=== PATIENT | male | born 1945 | race Caucasian/White ===

== ENCOUNTER 2018-10-13 10:49 | Observation (INO) ==
--- NOTE | 2018-10-13 11:27 | ED ---
HPI General Chief complaint: Arrhythmia / Palpitations Stated complaint: Afib Time Seen by Provider: 10/13/18 11:08 Source: patient Mode of arrival: ambulatory Limitations: no limitations History of Present Illness HPI narrative: 72-year-old male with history of CAD, one cardiac stent, sent in by his lining layer Dr. Burgos because during a procedure today for anal fissures, while the patient was under generalized anesthesia on the monitor his heart rate was in the 40s and he was noted to be in A. fib. Patient denies history of A. fib. States he is completely asymptomatic. No chest pain or dyspnea. No fevers or recent illness. No abdominal pain. Related Data Home Medications Medication Instructions Recorded Confirmed aspirin [Aspirin Low Dose] 81 mg PO DAILY 10/13/18 10/13/18 fenofibrate 54 mg PO HS 10/13/18 10/13/18 losartan 50 mg PO DAILY 10/13/18 10/13/18 meloxicam 15 mg PO DAILY 10/13/18 10/13/18 omeprazole 20 mg PO DAILY 10/13/18 10/13/18 simvastatin 40 mg PO QPM 10/13/18 10/13/18 Allergies Allergy/AdvReac Type Severity Reaction Status Date / Time metoprolol Allergy Severe UNKNOWN Verified 10/13/18 10:56 codeine Allergy Mild NAUSEA Verified 10/13/18 10:56 Review of Systems ROS: all other systems reviewed are negative PMFSH Medical History Medical History Anal fissure (Acute) GERD (gastroesophageal reflux disease) (Acute) H/O [place] spotted fever (Acute) Hypercholesteremia (Acute) Hypertension (Acute) Infectious hepatitis (Acute) Myocardial infarction (Acute) Surgical History Surgical History H/O umbilical hernia repair (Acute) History of coronary artery stent placement (Acute) History of right hip replacement (Acute) Social History Social History Substance History: No History of Abuse Second Hand Smoke Exposure: No Smoking Status: Never smoker How Often Do You Have a Drink Containing Alcohol: Never Recent Travel in [place] within the Last 8 Weeks: No Recent Out of Country Travel within the Last 8 Weeks: No Immunization History Tetanus Immunization: >5 Years Exam Narrative Exam Narrative: GENERAL: Well-developed, well-nourished, awake, alert, no apparent distress. SKIN: Focused skin assessment warm/dry. HEAD: Atraumatic. Normocephalic. EYES: Pupils equal and round. No scleral icterus. No injection or drainage. Diffuse pallor. ENT: No nasal bleeding or discharge. Mucous membranes pink and moist. NECK: Trachea midline. No JVD. CARDIOVASCULAR: Irregular, rate 50. RESPIRATORY: No accessory muscle use. Clear to auscultation. Breath sounds equal bilaterally. GASTROINTESTINAL: Abdomen soft, non-tender, nondistended. MUSCULOSKELETAL: No obvious deformities. No clubbing. No cyanosis. No edema. NEUROLOGICAL: Awake and alert. No obvious cranial nerve deficits. Motor grossly within normal limits. Normal speech. PSYCHIATRIC: Appropriate mood and affect; insight and judgment normal. Course Initial Documented Vital Signs Temperature 97.6 F 10/13/18 10:50 Pulse Rate 61 10/13/18 10:50 Respiratory Rate 16 10/13/18 10:50 Blood Pressure 144/62 H 10/13/18 10:50 Pulse Oximetry 95 10/13/18 10:50 Last Documented Vital Signs Temperature 97.6 F 10/13/18 10:50 Pulse Rate 56 L 10/13/18 11:40 Respiratory Rate 18 10/13/18 11:40 Blood Pressure 119/60 10/13/18 11:40 Pulse Oximetry 96 10/13/18 11:40 Medical Decision Making MDM Narrative Medical decision making narrative: Vital signs reviewed. CBC is essentially unremarkable. CMP is remarkable for BUN 19, creatinine 1.9, GFR 35, random glucose 187, potassium 3.3. Patient is unaware of history of renal insufficiency, however he remembers being told in October that he was dehydrated. Have attempted to obtain labs from the patient's primary care physician as the patient states he had labs done last week. I discussed the case with on-call patients transporter Dr. Mg who recommends starting patient on subcu Lovenox 1 mg/kg twice daily, renally adjusted, and admitting the patient for echocardiogram with cardiology consultation. The patient was made aware of all findings and plan for admission. Case discussed with hospitalist Dr. Navas who will admit the patient to his service. Medical Screen Exam Complete: Yes Emergency Medical Condition: Yes Differential Diagnosis Differential Diagnosis: New-onset A. fib, metabolic abnormality, anemia, heart block Lab Data Result diagrams: 10/13/18 11:40 10/13/18 11:40 Lab Results 10/13/18 10/13/18 10/13/18 Range/Units 11:40 11:40 11:40 CBC w Diff Auto diff final WBC 7.3 (4.0-11.0) th/mm3 RBC 4.25 L (4.50-5.90) mil/mm3 Hgb 14.2 (13.0-17.0) gm/dL Hct 44.4 (39.0-51.0) % MCV 104.4 H (80.0-100.0) fL MCH 33.5 (27.0-34.0) pg MCHC 32.1 (32.0-36.0) % RDW 12.7 (11.6-17.2) % Plt Count 181 (150-450) th/mm3 MPV 9.2 (7.0-11.0) fL Neut % (Auto) 79.2 H (16.0-70.0) % Lymph % (Auto) 14.0 (9.0-44.0) % [place] % (Auto) 4.0 (0.0-8.0) % Eos % (Auto) 1.3 (0.0-4.0) % Baso % (Auto) 1.5 (0.0-2.0) % Neut # (Auto) 5.8 (1.8-7.7) th/mm3 Lymph # (Auto) 1.0 (1.0-4.8) th/mm3 [place] # (Auto) 0.3 (0.0-0.9) th/mm3 Eos # (Auto) 0.1 (0.0-0.4) th/mm3 Baso # (Auto) 0.1 (0.0-0.2) th/mm3 WBC Differential . Differential Comment . PT 10.8 (9.8-11.6) sec INR 1.1 Ratio APTT 24.2 (23.4-31.7) sec Sodium 143 (136-145) meq/L Potassium 3.3 L (3.5-5.1) meq/L Chloride 109 H (98-107) meq/L Carbon Dioxide 23.8 (21.0-32.0) meq/L Anion Gap 10 (5-15) meq/L BUN 19 H (7-18) mg/dL Creatinine 1.90 H (0.60-1.30) mg/dL Estimated GFR 35 L (>89) mL/min Random Glucose 187 H (74-106) mg/dL Calcium 8.3 L (8.5-10.1) mg/dL Total Bilirubin 0.4 (0.2-1.0) mg/dL AST 25 (15-37) U/L ALT 17 (12-78) U/L Alkaline Phosphatase 40 L (45-117) U/L Total Creatine Kinase 121 (39-308) U/L CK-MB (CK-2) 2.2 (0.5-3.6) ng/mL Troponin I 0.03 (0.02-0.05) ng/mL Total Protein 7.6 (6.4-8.2) g/dL Albumin 3.6 (3.4-5.0) g/dL ECG Data Attestation: I personally reviewed and interpreted this ECG as follows: (A. fib , rate 48, normal axis, nonspecific T wave abnormality, no ST segment abnormality.) Discharge Plan Discharge Disposition Patient Disposition: ED Admit(ED Internal Use Only) Discharge Condition Condition: Stable Discharge Details Diagnosis: New onset a-fib, Bradycardia, Renal insufficiency, Hyperglycemia Physicians Team ED Provider: Bandar Jaquez Primary Care Provider: Caleb Feliciano Rxs /Orders / Referrals /Forms Prescriptions: No Action losartan 50 mg Tablet 50 mg PO DAILY RF: 0 meloxicam 15 mg Tablet 15 mg PO DAILY RF: 0 aspirin [Aspirin Low Dose] 81 mg Tablet,Delayed Release (Dr/Ec) 81 mg PO DAILY RF: 0 simvastatin 40 mg Tablet 40 mg PO QPM RF: 0 omeprazole 20 mg Capsule,Delayed Release(Dr/Ec) 20 mg PO DAILY RF: 0 fenofibrate 54 mg Tablet 54 mg PO HS RF: 0 Status ED Status: With Doctor
--- NOTE | 2018-10-13 11:52 | ECG ---
Date Performed: 10/13/2018 Time Performed: 11:32:45 PTAGE: 72 years EKG: ATRIAL FIBRILLATION WITH SLOW VENTRICULAR RESPONSE POSSIBLE RIGHT VENTRICULAR CONDUCTION DE LAY NONSPECIFIC T-WAVE ABNORMALITY ABNORMAL ECG PREVIOUS TRACING : 07/15/2009 09.45 DOCTOR: James Saenz Interpretating Date/Time 10/13/2018 11:49:51
[2018-10-13 11:57] LABS: Baso # (Auto) 0.1 th/mm3 (0.0-0.2); Baso % (Auto) 1.5 % (0.0-2.0); Eos # (Auto) 0.1 th/mm3 (0.0-0.4); Eos % (Auto) 1.3 % (0.0-4.0); Hematocrit 44.4 % (39.0-51.0); Hemoglobin 14.2 gm/dL (13.0-17.0); Mean Corpuscular HGB Conc 32.1 % (32.0-36.0); Mean Corpuscular Hemoglobin 33.5 pg (27.0-34.0); Mean Corpuscular Volume 104.4 fL (80.0-100.0); Mean Platelet Volume 9.2 fL (7.0-11.0); Mono # (Auto) 0.3 th/mm3 (0.0-0.9); Neut # (Auto) 5.8 th/mm3 (1.8-7.7); Neut % (Auto) 79.2 % (16.0-70.0); Platelet Count 181 th/mm3 (150-450); Red Blood Count 4.25 mil/mm3 (4.50-5.90); Red Cell Distribution Width 12.7 % (11.6-17.2); White Blood Count 7.3 th/mm3 (4.0-11.0)
[2018-10-13 12:08] LABS: Chloride 109 meq/L (98-107); Potassium 3.3 meq/L (3.5-5.1); Sodium 143 meq/L (136-145)
[2018-10-13 12:14] LABS: Albumin 3.6 g/dL (3.4-5.0); Anion Gap 10 meq/L (5-15); Blood Urea Nitrogen 19 mg/dL (7-18); Calcium 8.3 mg/dL (8.5-10.1); Carbon Dioxide 23.8 meq/L (21.0-32.0); Glucose,Random 187 mg/dL (74-106)
[2018-10-13 12:16] LABS: Activated Partial Thrombo Time 24.2 sec (23.4-31.7); INR 1.1 Ratio; Prothrombin Time 10.8 sec (9.8-11.6)
[2018-10-13 12:17] LABS: Alanine Aminotransferase 17 U/L (12-78); Aspartate Aminotransferase 25 U/L (15-37); Glomerular Filtration Rate 35 mL/min (>89)
[2018-10-13 12:19] LABS: Total Protein 7.6 g/dL (6.4-8.2)
[2018-10-13 12:20] LABS: Alkaline Phosphatase 40 U/L (45-117); Creatine Kinase 121 U/L (39-308)
[2018-10-13 12:22] LABS: Troponin I 0.03 ng/mL (0.02-0.05)
[2018-10-13 12:32] LABS: Creatine Kinase MB 2.2 ng/mL (0.5-3.6)
[2018-10-13] MEDS ORDERED: Enoxaparin Inj 150 MG/ML Syringe SQ ONE (13:36)
[2018-10-13] MEDS ORDERED: Sod Chloride 0.9% Inj 1,000 ML IV.CONT SCH (14:00)
--- NOTE | 2018-10-13 15:08 | P.HP ---
History of Present Illness Primary Care Physician: Caleb Feliciano Chief Complaint: Patient sent here by Dr. Burgos History of Present Illness: 72-year-old male with known history of hypertension, hyperlipidemia, coronary disease, gastroesophageal reflux who was sent to the hospital because of bradycardia and atrial fibrillation. Patient was in normal state of health when he went to have anal fissure surgery today by Dr. Burgos, patient underwent general anesthesia and apparently was bradycardic with atrial fibrillation. Patient was sent here for further evaluation and management. Upon workup in emergency department patient was found to have atrial fib/flutter with slow ventricular response and it was recommended by ER physician the patient be observed for further evaluation management, cardiology was consulted who recommended echocardiogram, Lovenox, cardiology consultation. Patient indicates that last time he saw a gauger chief was over 10 years ago. When he first had his myocardial infarction with stenting back 21 years ago he did follow with Dr. Winters on a regular basis and then he started seeing Dr. Cool. However he never went back for continued care and management. Patient denies any recent cardiac workup. He states that his primary medical doctor has not performed any EKGs in the last 2 years. The patient indicates that he normally has low heart rate in the 40s and 50s. He is never been told that he has any abnormal heart rate. He is asymptomatic without any chest pain , shortness of breath, dyspnea, fatigue, chest pain, lightheadedness, dizziness. - Diagnosis (1) New onset a-fib (2) Acute renal failure superimposed on stage 2 chronic kidney disease (3) Hyperglycemia Review of Systems All other systems reviewed negative except as stated in HPI [facility] - History History Provided By: Patient - Medical History Medical History: Medical History (Last Updated 10/13/18 @ 11:13 by Codie Ramirez RN) Anal fissure GERD (gastroesophageal reflux disease) H/O [place] spotted fever Hypercholesteremia Hypertension Infectious hepatitis Myocardial infarction - Surgical History Surgical History: Surgical History (Last Updated 10/13/18 @ 11:13 by Codie Ramirez RN) H/O umbilical hernia repair History of coronary artery stent placement History of right hip replacement - Family History Family History: Family History (Last Updated 10/13/18 @ 15:02 by UZMA Ybarra) Other No pertinent family history - Tobacco History Second Hand Smoke Exposure: No Smoking Status: Never smoker - Alcohol History How Often Do You Have a Drink Containing Alcohol: Never - Substance Use History Substance History: No History of Abuse - Travel History Recent Travel in the [place] Within the Last 8 Weeks: No Recent Travel Out of the Country Within the Last 8 Weeks: No - Immunization History Tetanus Immunization: >5 Years Medications and Allergies Active Medications: Active Medications Sodium Chloride (Ns Inj) 1,000 mls @ 125 mls/hr IV.CONT .Q8H OFELIA Stop: 10/13/18 21:59 Last Admin: 10/13/18 14:14 Dose: 125 mls/hr Sodium Chloride (Ns Flush) 2 ml IV.FLUSH UNSCH PRN PRN Reason: FLUSH AFTER USING IV ACCESS Allergies Allergy/AdvReac Type Severity Reaction Status Date / Time metoprolol Allergy Severe UNKNOWN Verified 10/13/18 10:56 codeine Allergy Mild NAUSEA Verified 10/13/18 10:56 Home Medications Medication Instructions Recorded Confirmed Type aspirin [Aspirin Low Dose] 81 mg PO DAILY 10/13/18 10/13/18 History fenofibrate 54 mg PO HS 10/13/18 10/13/18 History losartan 50 mg PO DAILY 10/13/18 10/13/18 History meloxicam 15 mg PO DAILY 10/13/18 10/13/18 History omeprazole 20 mg PO DAILY 10/13/18 10/13/18 History simvastatin 40 mg PO QPM 10/13/18 10/13/18 History Exam Vital signs: Vital Signs 10/13/18 10:50 10/13/18 11:40 10/13/18 14:23 Temperature 97.6 F Pulse Rate 61 56 L 57 L Respiratory Rate 16 18 18 Blood Pressure 144/62 H 119/60 137/74 Pulse Oximetry 95 96 98 Intake & Output 10/12/18 10/13/18 10/13/18 18:59 06:59 18:59 Weight 85.5 kg Narrative: GENERAL: Well-developed, well-nourished, in no acute distress. alert and orientated HEENT: Head is normocephalic without any lesions or masses noted. Facial features are symmetric. Eyes: Pupils equal round reactive to light. Extraocular muscles are intact. Conjunctivae were clear. Oropharyngeal: Pharynx without any erythema edema. Tongue is midline without deviation. Buccal mucosa is moist without any masses or lesions NECK: Supple without any masses. Trachea midline no deviation. No JVD, no bruits are appreciated CARDIAC: Bradycardic with irregular rhythm. S1/S2 are heard. No murmurs gallops or rubs. LUNGS: Clear to auscultation bilaterally. No wheeze, rhonchi or rales. No use of accessory muscles on inspiration or expiration. ABDOMEN: Soft, nontender. Nondistended. Bowel sounds heard in all 4 quadrants. No organomegaly or masses. Negative rebound, negative guarding EXTREMITIES: No edema, pulses are equal bilaterally. No cyanosis or clubbing NEUROLOGY: Mood and affect appear appropriate. Cranial nerves II through XII grossly intact. Muscle strength 5/5 in upper and lower extremities bilaterally. Deep tendon reflexes are 2+ in upper and lower extremities bilaterally. Results - Labs CBC & Chem 7: 10/13/18 11:40 10/13/18 11:40 Labs: Laboratory Results - last 24 hr 10/13/18 10/13/18 10/13/18 11:40 11:40 11:40 CBC w Diff Auto diff final WBC 7.3 RBC 4.25 L Hgb 14.2 Hct 44.4 MCV 104.4 H MCH 33.5 MCHC 32.1 RDW 12.7 Plt Count 181 MPV 9.2 Neut % (Auto) 79.2 H Lymph % (Auto) 14.0 [place] % (Auto) 4.0 Eos % (Auto) 1.3 Baso % (Auto) 1.5 Neut # (Auto) 5.8 Lymph # (Auto) 1.0 [place] # (Auto) 0.3 Eos # (Auto) 0.1 Baso # (Auto) 0.1 WBC Differential . Differential Comment . PT 10.8 INR 1.1 APTT 24.2 Sodium 143 Potassium 3.3 L Chloride 109 H Carbon Dioxide 23.8 Anion Gap 10 BUN 19 H Creatinine 1.90 H Estimated GFR 35 L Random Glucose 187 H Calcium 8.3 L Total Bilirubin 0.4 AST 25 ALT 17 Alkaline Phosphatase 40 L Total Creatine Kinase 121 CK-MB (CK-2) 2.2 Troponin I 0.03 Total Protein 7.6 Albumin 3.6 Caprini VTE Risk Assessment Caprini VTE Risk Assessment: Moderate/High Risk (score >= 2) Caprini Risk Assessment Model: Point Value = 1 Point Value = 2 Point Value = 3 Point Value = 5 Age 41-60 Minor surgery BMI > 25 kg/m2 Swollen legs Varicose veins or History of unexplained or recurrent spontaneous Oral contraceptives or hormone replacement Sepsis (< 1 month) Serious lung disease, including pneumonia (< 1 month) Abnormal pulmonary function Acute myocardial infarction Congestive heart failure (< 1 month) History of inflammatory bowel disease Medical patient at bed rest Age 61-74 Arthroscopic surgery Major open surgery (> 45 min) Laparoscopic surgery (> 45 min) Malignancy Confined to bed (> 72 hours) Immobilizing plaster cast Central venous access Age >= 75 History of VTE Family history of VTE Factor V Leiden Prothrombin [id number] Lupus anticoagulant Anticardiolipin antibodies Elevated serum homocysteine Heparin-induced thrombocytopenia Other congenital or acquired thrombophilia Stroke (< 1 month) Elective arthroplasty Hip, pelvis, or leg fracture Acute spinal cord injury (< 1 month) Prophylaxis Regimen: Total Risk Factor Score Risk Level Prophylaxis Regimen 0-1 Low Early ambulation 2 Moderate Order ONE of the following: *Sequential Compression Device (SCD) *Heparin 5000 units SQ BID 3-4 Higher Order ONE of the following medications: *Heparin 5000 units SQ TID *Enoxaparin/Lovenox 40 mg SQ daily (WT < 150 kg, CrCl > 30 mL/min) *Enoxaparin/Lovenox 30 mg SQ daily (WT < 150 kg, CrCl > 10-29 mL/min) *Enoxaparin/Lovenox 30 mg SQ BID (WT < 150 kg, CrCl > 30 mL/min) AND/OR *Sequential Compression Device (SCD) 5 or more Highest Order ONE of the following medications: *Heparin 5000 units SQ TID (Preferred with Epidurals) *Enoxaparin/Lovenox 40 mg SQ daily (WT < 150 kg, CrCl > 30 mL/min) *Enoxaparin/Lovenox 30 mg SQ daily (WT < 150 kg, CrCl > 10-29 mL/min) *Enoxaparin/Lovenox 30 mg SQ BID (WT < 150 kg, CrCl > 30 mL/min) AND *Sequential Compression Device (SCD) Assessment and Plan - Assessment (1) New onset a-fib Code(s): I48.91 - Unspecified atrial fibrillation Status: Acute (2) Acute renal failure superimposed on stage 2 chronic kidney disease Code(s): N17.9 - Acute kidney failure, unspecified; N18.2 - Chronic kidney disease, stage 2 (mild) Status: Acute (3) Hyperglycemia Code(s): R73.9 - Hyperglycemia, unspecified Status: Acute - Plan New onset atrial fibrillation/flutter with slow ventricular response -Rate controlled at this time -Obtain echocardiogram -Cardiology consulted for further recommendations -Chads score 2, will need full anticoagulation, preferably with Xarelto or Eliquis -Patient does have increased cardiovascular risk factors. Possible need for myocardial perfusion study, will defer to cardiology Hyperglycemia -Obtain hemoglobin A1c -Accu-Cheks with sliding scale insulin Acute renal failure superimposed on chronic kidney disease stage II -Continue IV fluids -Monitor renal function -Avoid nephrotoxins Hypertension, hyperlipidemia, coronary artery disease -Continue home medications DVT prevention -Patient on Lovenox
[2018-10-13] MEDS ORDERED: Dextrose 50% in Water 50 ML Vial IV.PUSH PRN (15:12)
[2018-10-13] MEDS: Insulin NovoLOG Aspart Correctional Sugar Inj SQ SCH ×2 (17:28→22:51)
[2018-10-13] MEDS ORDERED: Fenofibrate 48 MG Tablet PO SCH (21:00)
--- NOTE | 2018-10-13 21:16 | MB ---
cc: Chaz Mg MD DATE: 10/13/2018 HISTORY OF PRESENT ILLNESS: Alf is a very pleasant 72-year-old gentleman who was at [place] having an outpatient procedure. He was found to be in atrial fibrillation with a slow ventricular response. The patient is completely asymptomatic. Denies chest pain, fever, chills, cough, GI or bleeding, PND, orthopnea, syncope, or dizziness. PAST MEDICAL HISTORY: As per history of present illness. He has a history of anal fissure, GERD, [place] spotted fever, hyperlipidemia, hypertension, infectious hepatitis, myocardial infarction, umbilical hernia repair, history of stent placement, history of right hip replacement. ALLERGIES: METOPROLOL AND CODEINE. SOCIAL HISTORY: Never smoked. Denies alcohol use. MEDICATIONS: Medications in the hospital: 1. Tricor 48 mg daily. 2. Lovenox 40 mg subcutaneous every 12 hours. 3. Pantoprazole 20 mg daily. 4. Pravachol 80 mg every p.m. 5. Protonix 20 mg daily. 6. Potassium supplementation. PHYSICAL EXAMINATION: VITAL SIGNS: Pulse ranging between 56 and 57, blood pressure 137/74, sats 98% on room air, temperature 97.6, respiratory rate 16. GENERAL: He is alert and oriented x3, in no acute distress. NECK: Supple. No JVD. No bruit. CARDIOVASCULAR: S1, S2. No murmurs, rubs, or gallops. LUNGS: Clear to auscultation bilaterally. ABDOMEN: Soft, nontender, nondistended with positive bowel sounds. EXTREMITIES: No lower extremity edema. LABORATORY DATA: EKG shows atrial fibrillation at a rate of 48 beats per minute. Corrected QT interval 475 milliseconds. White count 7.3, hemoglobin 14.2, hematocrit 44.4, MCV is 104.4, platelet count 181. INR is 1.1. Sodium 143, potassium 3.3, chloride 109, bicarbonate 23.8, BUN 19, creatinine 1.90. Troponin 0.03. DIAGNOSES: 1. Atrial fibrillation. 2. Bradycardia. 3. Coronary artery disease. 4. Chronic renal insufficiency. 5. Hypokalemia. 6. Macrocytosis. 7. History of myocardial infarction. DISCUSSION: The patient's CHADS-VASc score is at least 2 given his history of coronary artery disease, male gender, age of 72. Therefore, I have advised him to take Coumadin or a novel oral anticoagulant agent to lower his risk of life threatening and/or debilitating stroke, which I have explained to him and his family members. The patient agrees. He wants to wait and see what his insurance covers and has not decided between Coumadin or novel oral anticoagulant agent. He is adequately anticoagulated with Lovenox and he is dosed with Lovenox per his renal function. I think it is reasonable to observe him overnight on telemetry just to rule out any significant pauses or worsening bradyarrhythmia. Otherwise, he is completely asymptomatic and otherwise there is no indication for treatment of his bradycardia. MD LISA Brewster/ts , 08:21 PM , 08:29 PM
[2018-10-14] MEDS: Enoxaparin Inj 40 MG/0.4 ML Syringe SQ SCH ×2 (05:33→13:11)
[2018-10-14 07:45] LABS: Hematocrit 41.9 % (39.0-51.0); Hemoglobin 13.6 gm/dL (13.0-17.0); Mean Corpuscular HGB Conc 32.4 % (32.0-36.0); Mean Corpuscular Hemoglobin 33.8 pg (27.0-34.0); Mean Corpuscular Volume 104.2 fL (80.0-100.0); Mean Platelet Volume 9.4 fL (7.0-11.0); Platelet Count 165 th/mm3 (150-450); Red Blood Count 4.02 mil/mm3 (4.50-5.90); Red Cell Distribution Width 12.2 % (11.6-17.2); White Blood Count 4.9 th/mm3 (4.0-11.0)
[2018-10-14 08:05] LABS: Potassium 3.6 meq/L (3.5-5.1)
[2018-10-14 08:07] LABS: Calcium 7.9 mg/dL (8.5-10.1); Carbon Dioxide 25.3 meq/L (21.0-32.0)
[2018-10-14] MEDS: Insulin NovoLOG Aspart Correctional Sugar Inj SQ SCH ×2 (08:30→12:15)
[2018-10-14] MEDS ORDERED: Pantoprazole Sodium 20 MG DR Tablet PO SCH (09:00)
--- NOTE | 2018-10-14 09:37 | P.PNIM ---
Subjective Interval history: 72-year-old male who is seen examined today for follow-up on atrial fibrillation with slow ventricular response. Patient is asymptomatic at this time. Denies any chest pain, short of breath, dyspnea. Vital signs appear to be stable. Heart rate ranging from 46-61. Patient remains afebrile Physical Exam Vital signs: Last Vital Signs Temp 97.4 F L 10/14/18 07:15 Pulse 48 L 10/14/18 07:15 Resp 22 10/14/18 07:15 BP 167/77 H 10/14/18 07:15 Pulse Ox 98 10/14/18 07:15 Intake & Output 10/12/18 10/13/18 10/14/18 10/15/18 06:59 06:59 06:59 06:59 Intake Total 1680 / 1680 1040 / 1040 Output Total 360 / 360 Balance 1680 / 1680 680 / 680 Weight 85.4 kg Narrative: GENERAL: Well-developed, well-nourished, in no acute distress. alert and orientated HEENT: Head is normocephalic without any lesions or masses noted. Facial features are symmetric. Eyes: Extraocular muscles are intact. Conjunctivae were clear. NECK: Supple without any masses. Trachea midline no deviation. No JVD, CARDIAC: Bradycardic with irregular rhythm. S1/S2 are heard. No murmurs gallops or rubs. LUNGS: Clear to auscultation bilaterally. No wheeze, rhonchi or rales. No use of accessory muscles on inspiration or expiration. ABDOMEN: Soft, nontender. Nondistended. Bowel sounds heard in all 4 quadrants. No organomegaly or masses. Negative rebound, negative guarding EXTREMITIES: No edema, pulses are equal bilaterally. No cyanosis or clubbing NEUROLOGY: Mood and affect appear appropriate. Cranial nerves II through XII grossly intact.Moving all extremities. Speech is clear Results Labs CBC & Chem 7: 10/14/18 06:25 10/14/18 06:25 Assessment and Plan (1) New onset a-fib: Code(s): I48.91 - Unspecified atrial fibrillation Status: Acute (2) Acute renal failure superimposed on stage 2 chronic kidney disease: Code(s): N17.9 - Acute kidney failure, unspecified; N18.2 - Chronic kidney disease, stage 2 (mild) Status: Acute (3) Hyperglycemia: Code(s): R73.9 - Hyperglycemia, unspecified Status: Acute Plan New onset atrial fibrillation/flutter with slow ventricular response -Rate controlled at this time -Awaiting echocardiogram -Cardiology consulted for further recommendations, Who recommended anticoagulation And indicated no treatment for the bradycardia unless he is symptomatic. -Chads score 2, patient will be started on Eliquis 5 mg twice daily -Cardiology evaluated the patient today and indicated that patient is cleared for discharge with outpatient follow-up as soon as possible. Hyperglycemia -Hemoglobin A1c is 4.2 -Accu-Cheks with sliding scale insulin Acute renal failure superimposed on chronic kidney disease stage II, Improving -Continue IV fluids -Monitor renal function -Avoid nephrotoxins Hypertension, hyperlipidemia, coronary artery disease -Continue home medications DVT prevention -Patient on Lovenox Discharge planning Discharge home in stable condition Activity: Ad suma. Diet: Healthy heart diet Medication per medication reconciliation Follow-up with primary medical doctor in 1 week Progress Note: Quality VTE Deep Vein Thrombosis/Pulmonary Embolism Present on Admission: No _ (1) Acute renal failure superimposed on stage 2 chronic kidney disease Qualifiers: Acute renal failure type:
[2018-10-14 09:56] LABS: Hemoglobin A1c 4.2 % (4.3-6.0)
--- NOTE | 2018-10-14 15:16 | P.PNCA ---
Subjective Interval history: alert in nad Medications and Allergies Active Medications: Active Medications Apixaban (Eliquis) 5 mg PO BID [facility] Last Admin: 10/14/18 14:11 Dose: Not Given Dextrose (D50w Vial) 50 ml IV.PUSH UNSCH PRN PRN Reason: PER HYPOGLYCEMIA PROTOCOL Fenofibrate (Tricor) 48 mg PO HS [facility] Last Admin: 10/13/18 22:53 Dose: Not Given Glucagon (Glucagon Inj) 1 mg OTHER PRN PRN PRN Reason: for Hypoglycemia Protocol Potassium Chloride/Sodium Chloride (Ns + Kcl 20 Meq Inj) 1,000 mls @ 84 mls/hr IV.CONT .[id number] [facility] Stop: 10/14/18 15:48 Last Admin: 10/14/18 05:33 Dose: 84 mls/hr Insulin Aspart (Novolog Insulin Correctional Sugar Inj) 0 unit SQ ACHS [facility]; Protocol Last Admin: 10/14/18 12:15 Dose: Not Given Pantoprazole Sodium (Protonix) 20 mg PO DAILY [facility] Last Admin: 10/14/18 08:43 Dose: 20 mg Pravastatin Sodium (Pravachol) 80 mg PO QPM [facility] Last Admin: 10/13/18 21:09 Dose: Not Given Sodium Chloride (Ns Flush) 2 ml IV.FLUSH PRN PRN PRN Reason: FLUSH AFTER USING IV ACCESS Sodium Chloride (Ns Flush) 2 ml IV.FLUSH BID [facility] Last Admin: 10/14/18 08:37 Dose: Not Given Tramadol HCl (Ultram) 50 mg PO Q8H PRN PRN Reason: PAIN SCALE 6 TO 10 Last Admin: 10/14/18 05:32 Dose: 50 mg Allergies Allergy/AdvReac Type Severity Reaction Status Date / Time metoprolol Allergy Severe UNKNOWN Verified 10/13/18 10:56 codeine Allergy Mild NAUSEA Verified 10/13/18 10:56 Home Medications Medication Instructions Recorded Confirmed Type aspirin [Aspirin Low Dose] 81 mg PO DAILY 10/13/18 10/13/18 History fenofibrate 54 mg PO HS 10/13/18 10/13/18 History losartan 50 mg PO DAILY 10/13/18 10/13/18 History meloxicam 15 mg PO DAILY 10/13/18 10/13/18 History omeprazole 20 mg PO DAILY 10/13/18 10/13/18 History simvastatin 40 mg PO QPM 10/13/18 10/13/18 History Physical Exam Vital signs: Vital Signs 10/13/18 20:00 10/14/18 00:00 10/14/18 04:00 Temperature 98.4 F 96.9 F L 96 F L Pulse Rate 54 L 46 L 47 L Respiratory Rate 20 20 20 Blood Pressure 166/75 H 143/67 H 177/72 H Pulse Oximetry 96 98 97 10/14/18 07:15 10/14/18 08:00 10/14/18 10:02 Temperature 97.4 F L Pulse Rate 48 L 52 L Respiratory Rate 22 Blood Pressure 167/77 H Pulse Oximetry 98 96 10/14/18 12:00 Temperature 98.2 F Pulse Rate 50 L Respiratory Rate 21 Blood Pressure 167/77 H Pulse Oximetry 96 Intake & Output 10/13/18 10/14/18 10/14/18 18:59 06:59 18:59 Intake Total 200 / 200 1480 / 1480 1280 / 1280 Output Total 860 / 860 Balance 200 / 200 1480 / 1480 420 / 420 Weight 85.5 kg 85.4 kg Intake: IV 200 / 200 1000 / 1000 800 / 800 NS + KCl 20 mEq Inj 1,000 ML @ 1000 / 1000 84 mls/hr IV.CONT .[id number] [facility] Rx#:[id number] NS Inj 1,000 ML @ 125 mls/hr IV 200 / 200 .CONT .Q8H [facility] Rx#:[id number] Oral 480 / 480 480 / 480 Output: Urine 860 / 860 Other: # Voids 2 # Bowel Movements 2 - Constitutional no acute distress - Routine HEENT Exam Head: Present: normocephalic - Routine Neck Exam Present: supple - Routine Respiratory Exam Present: CTA bilaterally - Routine Cardiovascular Exam Present: S1, S2 - Routine Abdominal Exam Present: soft - Routine Extremities Exam Comments: no jerica Results 10/14/18 06:25 10/14/18 06:25 Cardiac Enzymes 10/13/18 Range/Units 11:40 AST 25 (15-37) U/L CK-MB (CK-2) 2.2 (0.5-3.6) ng/mL Troponin I 0.03 (0.02-0.05) ng/mL Coagulation 10/13/18 Range/Units 11:40 PT 10.8 (9.8-11.6) sec APTT 24.2 (23.4-31.7) sec CBC 10/13/18 10/14/18 Range/Units 11:40 06:25 WBC 7.3 4.9 (4.0-11.0) th/mm3 RBC 4.25 L 4.02 L (4.50-5.90) mil/mm3 Hgb 14.2 13.6 (13.0-17.0) gm/dL Hct 44.4 41.9 (39.0-51.0) % Plt Count 181 165 (150-450) th/mm3 Neut # (Auto) 5.8 (1.8-7.7) th/mm3 Lymph # (Auto) 1.0 (1.0-4.8) th/mm3 [place] # (Auto) 0.3 (0.0-0.9) th/mm3 Eos # (Auto) 0.1 (0.0-0.4) th/mm3 Baso # (Auto) 0.1 (0.0-0.2) th/mm3 Comprehensive Metabolic Panel 10/13/18 10/14/18 Range/Units 11:40 06:25 Sodium 143 143 (136-145) meq/L Potassium 3.3 L 3.6 (3.5-5.1) meq/L Chloride 109 H 109 H (98-107) meq/L Carbon Dioxide 23.8 25.3 (21.0-32.0) meq/L BUN 19 H 20 H (7-18) mg/dL Creatinine 1.90 H 1.60 H (0.60-1.30) mg/dL Calcium 8.3 L 7.9 L (8.5-10.1) mg/dL AST 25 (15-37) U/L ALT 17 (12-78) U/L Alkaline Phosphatase 40 L (45-117) U/L Total Protein 7.6 (6.4-8.2) g/dL Albumin 3.6 (3.4-5.0) g/dL Intake and Output 10/14/18 10/14/18 10/14/18 06:59 14:59 22:59 Intake Total 1480 / 1480 1280 / 1280 Output Total 860 / 860 Balance 1480 / 1480 420 / 420 Intake: IV 1000 / 1000 800 / 800 NS + KCl 20 mEq Inj 1,000 ML @ 1000 / 1000 84 mls/hr IV.CONT .[id number] [facility] Rx#:[id number] Oral 480 / 480 480 / 480 Output: Urine 860 / 860 Other: # Voids 2 # Bowel Movements 2 Weight 85.4 kg Assessment and Plan - Assessment (1) New onset a-fib Code(s): I48.91 - Unspecified atrial fibrillation Status: Acute (2) Bradycardia Code(s): R00.1 - Bradycardia, unspecified Status: Acute (3) Renal insufficiency Code(s): N28.9 - Disorder of kidney and ureter, unspecified Status: Acute - Plan 1.)Afib/bradycardia - assymptomatic, on eliquis, ok to dc from cv standpoint, f/ u cardiology as outpatient miley
--- NOTE | 2018-10-15 10:33 | ECHRPT ---
Indication: CONCLUSIONS The left ventricular systolic function is low normal with an estimated ejection fraction in the rang e of 50- 55%. [id number] mitral valve regurgitation. Trace aortic valve regurgitation. There is trace tricuspid valve regurgitation. BP: / HR: Rhythm: MEASUREMENTS (Male / Female) Normal Values Technical Quality: 2D ECHO LV Diastolic Diameter PLAX 4.8 cm 4.2 - 5.9 / 3.9 - 5.3 cm LV Systolic Diameter PLAX 3.4 cm IVS Diastolic Thickness 0.8 cm 0.6 - 1.0 / 0.6 - 0.9 cm LVPW Diastolic Thickness 0.8 cm 0.6 - 1.0 / 0.6 - 0.9 cm LV Relative Wall Thickness 0.3 RV Internal Dim ED PLAX 3.4 cm LVOT Diameter 1.6 cm LA Systolic Diameter LX 4.5 cm 3.0 - 4.0 / 2.7 - 3.8 cm M-MODE Aortic Root Diameter MM 3.4 cm LA Systolic Diameter MM 4.9 cm LA Ao Ratio MM 1.4 DOPPLER AV Peak Velocity 187.0 cm/s AV Peak Gradient 14.0 mmHg AI Peak Velocity 271.0 cm/s AI Peak Gradient 29.4 mmHg AI Pressure Half Time 1354.0 ms LVOT Peak Velocity 100.0 cm/s LVOT Peak Gradient 4.0 mmHg AV Area Cont Eq pk 1.1 cm Mitral E Point Velocity 99.8 cm/s Mitral A Point Velocity 50.5 cm/s Mitral E to A Ratio 2.0 TR Peak Velocity 314.0 cm/s TR Peak Gradient 39.0 mmHg Right Atrial Pressure 10.0 mmHg Pulmonary Artery Systolic Pressu 49.4 mmHg Right Ventricular Systolic Press 49.4 mmHg PV Peak Velocity 71.6 cm/s PV Peak Gradient 2.1 mmHg FINDINGS LEFT VENTRICLE Normal left ventricular size. Wall thickness is normal. The left ventricular systolic function is low normal with an estimated ejection fraction in the rang e of 50- 55%. RIGHT VENTRICLE Grossly normal LEFT ATRIUM The left atrial size is mildly dilated. RIGHT ATRIUM The right atrial size is normal. ATRIAL SEPTUM Normal atrial septal thickness. AORTA The aortic root and proximal ascending aorta are normal in size on limited imaging. MITRAL VALVE Structurally normal mitral valve. No mitral valve stenosis. [id number] mitral valve regurgitation. AORTIC VALVE The aortic valve is not well visualized. Trace aortic valve regurgitation. No aortic valve stenosis. TRICUSPID VALVE Structurally normal tricuspid valve. There is trace tricuspid valve regurgitation. The estimated pulmonary arterial pressure is 49 mmHg. PULMONARY VALVE The pulmonary valve is not well visualized. Francis Davis DO (Electronically Signed) Final Date:15 October 2018 10:32
== END 2018-10-14 18:43 | disposition home or self-care (01) ==
LOC: PHEDA 10:49 → PHED 10:49 → PH3 14:26
PROVIDERS: ADMIT Hospitalist; ATTEND Hospitalist
DX: I48.92 Unspecified atrial flutter; Z96.641 Presence of right artificial hip joint; E78.00 Pure hypercholesterolemia, unspecified; I25.2 Old myocardial infarction; Z88.5 Allergy status to narcotic agent; E78.5 Hyperlipidemia, unspecified; Z79.82 Long term (current) use of aspirin; I48.91 Unspecified atrial fibrillation; E87.6 Hypokalemia; I12.9 Hypertensive chronic kidney disease with stage 1 through stage 4 chronic kidney disease, or unspecified chronic kidney disease; N18.2 Chronic kidney disease, stage 2 (mild); I25.10 Atherosclerotic heart disease of native coronary artery without angina pectoris; D75.89 Other specified diseases of blood and blood-forming organs; N17.9 Acute kidney failure, unspecified; B15.9 Hepatitis A without hepatic coma; K60.2 Anal fissure, unspecified; Z95.5 Presence of coronary angioplasty implant and graft; K21.9 Gastro-esophageal reflux disease without esophagitis; R00.1 Bradycardia, unspecified